=== PATIENT | male | born 1945 | race Two or more races ===

== ENCOUNTER 2025-02-15 09:10 | Emergency (ER) | payer OTHER ==
[~2025-02-15] VITALS: Ht 165.1 cm; Wt 75.3 kg
[~2025-02-15 09:10] MED LIST: NORVASC5 MG PO; URETRON D/S TAB1 TAB PO; ZANTAC 7575 MG
[2025-02-15] MEDS ORDERED: COZAAR100 MG PO (09:34)
[2025-02-15] MEDS ORDERED: HORIZANT300 MG (09:35)
[2025-02-15] MEDS ORDERED: TOPROL XL25 M1 PO (09:36)
[2025-02-15] MEDS ORDERED: COLCHICINE0.6 M1 PO (09:36)
[2025-02-15] MEDS ORDERED: BRILINTA90 MG PO (09:36)
[2025-02-15] MEDS ORDERED: ACID REDUCER20 M1 PO (09:36)
[2025-02-15] MEDS ORDERED: KETOROLAC TROMETHAMINE 30 MG VIAL ONE (09:57)
[2025-02-15] MEDS ORDERED: FAMOTIDINE/PF 20 MG/2 ML VIAL ONE (09:58)
[2025-02-15] MEDS ORDERED: ENALAPRILAT DIHYDRATE 1.25 MG/ML VIAL IV ONE (09:58)
[2025-02-15] MEDS ORDERED: KETOROLAC TROMETHAMINE 30 MG VIAL IU ONE (10:00)
[2025-02-15] MEDS ORDERED: ENALAPRILAT DIHYDRATE 2.5 MG/2 ML VIAL IV ONE (10:00)
[2025-02-15] MEDS ORDERED: FAMOTIDINE/PF 20 MG/2 ML VIAL IV ONE (10:00)
[2025-02-15 10:22] LABS: BASO % 0.3 % (0.1-1.2); EOS # 0.79 (0.04-0.54); EOS % 12.8 % (0.7-7.0); LYMPH # 2.53 (1.18-3.74); LYMPH % 40.9 % (19.3-53.1); MEAN PLATELET VOLUME 9.80 fl (9.4-12.4); MONO # 0.37 (0.24-0.82); MONO % 6.0 % (4.7-12.5); NEUT # 2.46 (1.56-6.13); NEUT % 39.7 % (34.0-71.1); RED CELL DISTRIBUTION WIDTH 12.1 % (11.6-14.4)
[2025-02-15 11:03] LABS: URINE APPEARANCE Clear; URINE BILIRRUBIN Negative (NEGATIVE); URINE BLOOD Negative; URINE COLOR Yellow; URINE GLUCOSE Negative (NEGATIVE); URINE KETONE Negative (NEGATIVE); URINE LEUKOCYTE Negative; URINE NITRATE Negative; URINE PROTEIN Negative (NEGATIVE); URINE UROBILINOGEN 1.0 E.U./dl
[2025-02-15 11:07] LABS: URINE BACTERIA 77.9 uL (0.0-1933); URINE EPITHELIAL CELLS 13.2 uL (0.0-38.8); URINE RBC 8.0 uL (0.0-20.8); URINE WBC 44.7 uL (0.0-23.2)
[2025-02-15 11:10] LABS: ALT/SGPT 46.0 U/L (12-78); AST/SGOT 25.0 U/L (15-37); BILIRUBIN TOTAL 1.21 mg/dL (0.3-1.2); BUN CREA RATIO 10.0 (7.0-25.0); CREATININE SERUM 1.08 mg/dL (0.70-1.30); GFR 65.78; GLOBULINA 3.5 G/DL (2.4-3.5); GLUCOSE FASTING 86.0 mg/dL (65-100); OSMOLALITY SERUM 286.0 MOSM/KG (275-295)
[2025-02-15 11:11] LABS: URINE CAST 0.87 uL (0.0-1.40)
[2025-02-15] MEDS ORDERED: LABETALOL HCL 20MG/4ML SYRINGE IV ONE (11:15)
[2025-02-15] MEDS ORDERED: LABETALOL HCL 100 MG/20 ML ML ONE (11:16)
[2025-02-15] MEDS ORDERED: hydrALAZINE HCL 20 MG VIAL IV ONE (13:00)
[2025-02-15] MEDS ORDERED: hydrALAZINE HCL 20 MG VIAL ONE (13:01)
[2025-02-15] MEDS ORDERED: TAMS0.4C PO (14:54)
== END 2025-02-15 17:48 | disposition home or self-care (01) ==
LOC: ER 09:10
PROVIDERS: Student in an Organized Health Care Education/Training Program
DX: N40.1 Benign prostatic hyperplasia with lower urinary tract symptoms (principal); R33.8 Other retention of urine; N20.0 Calculus of kidney; K57.30 Diverticulosis of large intestine without perforation or abscess without bleeding; Z95.0 Presence of cardiac pacemaker
CPT/HCPCS: 36415; 74176; 93005; 96365; 99284; J1885; J3490